=== PATIENT | male | born 1980 | race Two or more races ===

== ENCOUNTER 2020-04-23 17:01 | Emergency (ER) | payer SELFPAY ==
[~2020-04-23] VITALS: Ht 182.9 cm; Wt 93.0 kg
[2020-04-23 19:13] VITALS: BP 140/102
== END 2020-04-23 21:18 | disposition home or self-care (01) ==
LOC: ER 17:01
DX: J06.9 Acute upper respiratory infection, unspecified (principal); R05 Cough; Z20.828 Contact with and (suspected) exposure to other viral communicable diseases
CPT/HCPCS: 87635; 93005; 99284

== ENCOUNTER 2022-02-10 05:48 | Emergency (ER) | payer OTHER ==
[~2022-02-10] VITALS: Ht 182.9 cm; Wt 94.0 kg
[2022-02-10] MEDS ORDERED: TOPUD PO (08:52)
[2022-02-10] MEDS ORDERED: ACETAMINOPHEN 325MG TABLET PO ONE (09:00)
[2022-02-10 09:37] VITALS: BP 150/90
== END 2022-02-10 09:52 | disposition home or self-care (01) ==
LOC: ER 06:24
DX: S52.592A Other fractures of lower end of left radius, initial encounter for closed fracture (principal); M79.18 Myalgia, other site; Y08.89XA Assault by other specified means, initial encounter; Y93.89 Activity, other specified; Y92.9 Unspecified place or not applicable; Z02.79 Encounter for issue of other medical certificate
CPT/HCPCS: 29105; 73030; 73110; 73610; 99284